=== PATIENT | male | born 1995 | race African-American/Black ===

== ENCOUNTER 2016-09-02 20:47 | Emergency (ER) | payer OTHER ==
[~2016-09-02] VITALS: Ht 180.3 cm; Wt 82.4 kg
[2016-09-02 23:02] VITALS: BP 139/63
== END 2016-09-02 23:05 | disposition home or self-care (01) ==
LOC: EME 20:47
DX: S30.1XXA Contusion of abdominal wall, initial encounter (principal); V49.40XA Driver injured in collision with unspecified motor vehicles in traffic accident, initial encounter
CPT/HCPCS: 99281; 99283